=== PATIENT | female | born 1950 | race African-American/Black ===

== ENCOUNTER 2017-08-07 16:33 | Outpatient (CLI) | payer MEDICARE, MEDICAID ==
--- NOTE | 2017-08-08 11:18 | Diagnostic Imaging Report ---
Indication: Dyspnea Comparison: None 2 views of the chest obtained. Findings: The lungs are hyperexpanded. Aorta is ectatic. Heart size is normal. No infiltrates are seen. Bones are osteopenic. Impression: No acute disease COPD
== END 2017-08-07 18:33 | disposition home or self-care (01) ==
LOC: RAD 16:33
DX: R05 Cough (principal); J44.9 Chronic obstructive pulmonary disease, unspecified; M85.80 Other specified disorders of bone density and structure, unspecified site
CPT/HCPCS: 71020

== ENCOUNTER 2018-07-01 13:30 | Outpatient (CLI) | payer MEDICARE, MEDICAID ==
[~2018-07-01] VITALS: Ht 157.5 cm; Wt 57.8 kg
[2018-07-01 14:39] VITALS: BP 125/74
[2018-07-01] MEDS ORDERED: CALCIUM500 M2 PO (15:09)
[2018-07-01] MEDS ORDERED: PLAVIX75 MG ORAL (15:09)
[2018-07-01] MEDS ORDERED: [UNRECOGNIZED DRUG - REMARK] (15:09)
[2018-07-01] MEDS ORDERED: [UNRECOGNIZED DRUG - REMARK] (15:09)
--- NOTE | 2018-07-02 14:14 | GI Initial Consult Note ---
History of Present Illness General Date patient seen: Jul 02, 2018 Time patient seen: 14:08 Referring physician: ARLYN Reason for Consultation: Colonoscopy Present Illness HPI 68 year old female patient referred by Dr. Alejo presents today with routine colonoscopy screening. Last colonoscopy was 5+ years ago, which the patient states was normal. In addition, the patient complains of occasional constipation in which she states she takes pain medication for her leg. She has tried colace, but state it has no effects on her bowel movements. Denies any unintentional weight loss or changes in dietary habits. No signs of abuse or neglect. Patient is not fall risk. Patient believes she is on Plavix or some other blood thinner. Home Meds Reported Medications Clopidogrel Bisulfate* (PLAVIX*) 75 Mg Tablet, 75 MG ORAL DAILY, TAB 07/01/18 Calcium Carbonate (CALCIUM) 500 Mg Tablet, PO, TAB 07/01/18 [osteporosis pill ] No Conflict Check 07/01/18 [pain pill] No Conflict Check 07/01/18 Med list reviewed/reconciled: Yes Allergies: Coded Allergies: No Known Allergies (Verified , 10/06/11) Patient History History Provided By: Patient, Medical Record PMH Narrative CVA COPD Osteoporosis Past Surgical History: Leg leg Fx Family History Narrative Sister had Stomach CA Social History: Reports: other - soda; Denies: smoking, alcohol use, drug use Review of Systems All Other Systems: negative except mentioned in HPI Physical Exam Vital Signs Date Time Temp Pulse Resp B/P (MAP) Pulse Ox O2 Delivery O2 Flow Rate FiO2 07/01/18 14:39 98.1 88 16 125/74 96 Sp02 EP Interpretation: reviewed, normal General Appearance: well appearing, no apparent distress, alert Head: normocephalic EENT: PERRL/EOMI, normal ENT inspection Neck: supple Respiratory: normal breath sounds, no respiratory distress Cardiovascular: normal rate Gastrointestinal: normal inspection, non tender, soft, normal bowel sounds, non -distended Rectal: deferred Genitourinary: no CVA tenderness Musculoskeletal: normal inspection, back normal, other - decreases ROM RLE. Neurologic: normal inspection, alert, oriented x3, responsive Psychiatric: normal inspection, judgement/insight normal, memory normal Skin: normal inspection, normal color, no rash, warm/dry, palpation normal, well hydrated Lymphatic: normal inspection, no adenopathy GI: Plan Problems: (1) CVA (cerebral vascular accident) (2) COPD (chronic obstructive pulmonary disease) (3) Colonoscopy planned (4) Constipation (5) Osteoporosis Plan Colonoscopy scheduled 07/14/18. - CLD & (Nulytely/Suprep/Movi-Prep) prep instructions given and acknowledged by patient. - NPO @ [place] day prior procedure explained. - patient on plavix, was instructed to stop 3 days prior procedure. Seen with Dr. Blanton. Thank you for this patient referral. The patient was seen and examined at bedside and all new and available data was reviewed in the patients chart. I agree with the above findings, impression and plan. (Patient seen earlier today. Signature stamp does not reflect patient encounter time.). - MD Dot SerranoQuail Run Behavioral HealthMekhi [facility] Jul 02, 2018 14:14
== END 2018-07-01 14:00 | disposition home or self-care (01) ==
LOC: PAN 13:30
DX: Z12.11 Encounter for screening for malignant neoplasm of colon (principal); J44.9 Chronic obstructive pulmonary disease, unspecified; K59.00 Constipation, unspecified; M81.0 Age-related osteoporosis without current pathological fracture; Z86.73 Personal history of transient ischemic attack (TIA), and cerebral infarction without residual deficits; M54.16 Radiculopathy, lumbar region
CPT/HCPCS: 99202

== ENCOUNTER → 2018-08-11 | Day surgery (SDC) | payer MEDICARE, MEDICAID ==
[~2018-08-11] VITALS: Ht 157.5 cm; Wt 55.3 kg
[~2018-08-11] MED LIST: Atropine Inj 1mg/10ml Syr IV PRN; CALCIUM500 M2 PO; DiphenhydrAMINE 50mg/ml Inj IVP PRN; Midazolam 2mg/2ml Inj IVP PRN; PLAVIX75 MG ORAL; [UNRECOGNIZED DRUG - REMARK]; [UNRECOGNIZED DRUG - REMARK]; fentaNYL 100 mcg/2 mL IV PRN
--- NOTE | 2018-08-11 06:43 | Anethesia Preoperative Eval ---
Anesthesia Pre-op PMH/ROS General Date of Evaluation: Aug 11, 2018 Time of Evaluation: 06:41 Anesthesiologist: fabiana ASA Score: ASA 3 Mallampati Score Class I : Soft palate, uvula, fauces, pillars visible Class II: Soft palate, uvula, fauces visible Class III: Soft palate, base of uvula visible Class IV: Only hard plate visible Mallampati Classification: Class II Surgeon: collin Diagnosis: colon screening Surgical Procedure: colonoscopy Anesthesia History: none Social History: smoking - former Family History: no anesthesia problems Allergies: Coded Allergies: No Known Allergies (Verified , 10/06/11) Medications: see eMAR Patient NPO?: Yes Past Medical History Cardiovascular: Reports: MS Pulmonary: Reports: COPD Neurologic/Psychiatric: Reports: CVA, other - migaine headache Endocrine: Reports: other - thyroid disorder Hematology/Immune: Reports: anemia Musculoskeletal/Integumentary: Reports: other - osteoporosis Anesthesia Pre-op A/P Risk Assessment & Plan Assessment: incomplete colon prep. asa3 Plan: patient to be rescheduled. Beverly Patel MD Aug 11, 2018 06:43
--- NOTE | 2018-08-11 09:34 | Pre-Procedure Note/Attestation ---
Pre-Procedure Note/Attestation Complete Prior to Procedure Planned Procedure: not applicable Procedure Narrative: colonoscopy Indications for Procedure Pre-Operative Diagnosis: screening Attestation I attest that I discussed the nature of the procedure; its benefits; risks and complications; and alternatives (and the risks and benefits of such alternatives ), prior to the procedure, with the patient (or the patient's legal customer care representative). I attest that, if there was a reasonable possibility of needing a blood transfusion, the patient (or the patient's legal customer care representative) was given the [facility] standardized written summary, pursuant to the Eduardo [place] Blood Safety Act ([place] Health and Safety Code # 1645, as amended). I attest that I re-evaluated the patient just prior to the surgery and that there has been no change in the patient's H&P, except as documented below: Shabbir Blanton MD Aug 11, 2018 09:34
--- NOTE | 2018-08-11 09:35 | Short Stay Surgery H&P ---
History of Present Illness History of Present Illness Chief Complaint see recent office note HPI Samantha Alfred is a 68 year old female who was admitted on for Screening Patient History Allergies: Coded Allergies: No Known Allergies (Verified , 10/06/11) Medication History Scheduled Clopidogrel Bisulfate* (Plavix*), 75 MG ORAL DAILY, (Reported) Miscellaneous Medications Calcium Carbonate (Calcium), Unknown Dose PO, (Reported) [osteporosis pill ], (Reported) [pain pill], (Reported) Plan Attestation Are the patient's medical conditions optimized for surgery? Shabbir Blanton MD Aug 11, 2018 09:35
== END | disposition home or self-care (01) ==
LOC: GAS 07:05
DX: Z12.11 Encounter for screening for malignant neoplasm of colon (principal); Z53.09 Procedure and treatment not carried out because of other contraindication

== ENCOUNTER 2018-09-10 08:04 | Day surgery (SDC) | payer MEDICARE, MEDICAID ==
[2018-09-10] VITALS (11 sets, daily range): BP systolic 118–134; BP diastolic 65–79
[~2018-09-10] VITALS: Ht 154.9 cm; Wt 54.4 kg
[~2018-09-10 08:04] MED LIST changes: -Atropine Inj 1mg/10ml Syr IV PRN; -DiphenhydrAMINE 50mg/ml Inj IVP PRN; -Midazolam 2mg/2ml Inj IVP PRN; -fentaNYL 100 mcg/2 mL IV PRN
[2018-09-10] MEDS ORDERED: CYMBALTA60 MG ORAL (09:13)
[2018-09-10] MEDS ORDERED: CRESTOR20 MG ORAL (09:13)
[2018-09-10] MEDS ORDERED: SPIRIVA18 MCG INH (09:17)
[2018-09-10] MEDS ORDERED: ADVAIR 250-501 EACH INH (09:17)
[2018-09-10] MEDS ORDERED: NORCO 10-325 T1 EACH ORAL (09:17)
[2018-09-10] MEDS ORDERED: PROAIR HFA8.5 GM INH (09:17)
[2018-09-10] MEDS ORDERED: LEVETIRACETAM500 MG ORAL (09:17)
[2018-09-10 09:21] LABS: BASOPHILS % (AUTO) 0.8 % (0.0-2.0); EOSINOPHILS % (AUTO) 0.5 % (0.0-3.0); HEMATOCRIT 39.2 % (37.0-47.0); HEMOGLOBIN 12.5 G/DL (12.0-16.0); LYMPHOCYTES % (AUTO) 22.9 % (20.0-45.0); MEAN CORPUSCULAR VOLUME 100 FL (80-99); MONOCYTES % (AUTO) 5.8 % (1.0-10.0); NEUTROPHILS % (AUTO) 69.9 % (45.0-75.0); PLATELET COUNT 351 K/UL (150-450); RED CELL DISTRIBUTION WIDTH 12.5 % (11.6-14.8)
--- NOTE | 2018-09-10 09:34 | Short Stay Surgery H&P ---
History of Present Illness History of Present Illness Chief Complaint see recent office consult note HPI Samantha Alfred is a 68 year old female who was admitted on for Screening Colonoscopy Patient History Allergies: Coded Allergies: No Known Allergies (Verified , 10/06/11) Medication History Scheduled Albuterol Sulfate* (Proair Hfa*), 1 PUFF INH Q8, (Reported) Clopidogrel Bisulfate* (Plavix*), 75 MG ORAL DAILY, (Reported) Duloxetine Hcl* (Cymbalta*), 60 MG ORAL DAILY, (Reported) Fluticasone/Salmeterol (Advair 250-50 Diskus), 1 PUFF INH DA, (Reported) Levetiracetam* (Levetiracetam*), 250 MG ORAL DA, (Reported) Rosuvastatin Calcium* (Crestor*), 20 MG ORAL DAILY, (Reported) Tiotropium [place]* (Spiriva*), 1 PUFF INH DAILY, (Reported) Scheduled PRN Hydrocodone Bit/Acetaminophen 10-325* ([place] 10-325*), 1 TAB ORAL Q4H PRN for For Pain, (Reported) Miscellaneous Medications Calcium Carbonate (Calcium), Unknown Dose PO, (Reported) [osteporosis pill ], (Reported) Physical Exam Vital Signs Last Vital Signs Date Time Temp Pulse Resp B/P (MAP) Pulse Ox O2 Delivery O2 Flow Rate FiO2 09/10/18 08:48 Room Air 09/10/18 08:44 97.6 87 20 118/73 96 Labs Laboratory Tests Test 09/10/18 09:05 White Blood Count 5.0 K/UL (4.8-10.8) Red Blood Count 3.90 M/UL (4.20-5.40) L Hemoglobin 12.5 G/DL (12.0-16.0) Hematocrit 39.2 % (37.0-47.0) Mean Corpuscular Volume 100 FL (80-99) H Mean Corpuscular Hemoglobin 31.9 PG (27.0-31.0) H Mean Corpuscular Hemoglobin Concent 31.8 G/DL (32.0-36.0) L Red Cell Distribution Width 12.5 % (11.6-14.8) Platelet Count 351 K/UL (150-450) Mean Platelet Volume 5.3 FL (6.5-10.1) L Neutrophils (%) (Auto) 69.9 % (45.0-75.0) Lymphocytes (%) (Auto) 22.9 % (20.0-45.0) Monocytes (%) (Auto) 5.8 % (1.0-10.0) Eosinophils (%) (Auto) 0.5 % (0.0-3.0) Basophils (%) (Auto) 0.8 % (0.0-2.0) Prothrombin Time 10.2 SEC (9.30-11.50) Prothromb Time International Ratio 1.0 (0.9-1.1) Activated Partial Thromboplast Time 29 SEC (23-33) Sodium Level Pending Potassium Level Pending Chloride Level Pending Carbon Dioxide Level Pending Blood Urea Nitrogen Pending Creatinine Pending Estimat Glomerular Filtration Rate Pending Glucose Level Pending Calcium Level Pending Total Bilirubin Pending Aspartate Amino Transf (AST/SGOT) Pending Alanine Aminotransferase (ALT/SGPT) Pending Alkaline Phosphatase Pending Total Protein Pending Albumin Pending Globulin Pending Plan Attestation Are the patient's medical conditions optimized for surgery? Shabbir Blanton MD Sep 10, 2018 09:34
--- NOTE | 2018-09-10 09:34 | Pre-Procedure Note/Attestation ---
Pre-Procedure Note/Attestation Complete Prior to Procedure Planned Procedure: not applicable Procedure Narrative: colonoscopy Indications for Procedure Pre-Operative Diagnosis: screening Attestation I attest that I discussed the nature of the procedure; its benefits; risks and complications; and alternatives (and the risks and benefits of such alternatives ), prior to the procedure, with the patient (or the patient's legal denial management representative). I attest that, if there was a reasonable possibility of needing a blood transfusion, the patient (or the patient's legal denial management representative) was given the [facility] standardized written summary, pursuant to the Eduardo [place] Blood Safety Act ([place] Health and Safety Code # 1645, as amended). I attest that I re-evaluated the patient just prior to the surgery and that there has been no change in the patient's H&P, except as documented below: Shabbir Blanton MD Sep 10, 2018 09:34
[2018-09-10 09:36] LABS: ANION GAP 7 mmol/L (5-15); BLOOD UREA NITROGEN 13 mg/dL (7-18); CALCIUM 9.7 MG/DL (8.5-10.1); CARBON DIOXIDE 29 MMOL/L (21-32); CHLORIDE 103 MMOL/L (98-107); CREATININE 1.1 MG/DL (0.55-1.30); POTASSIUM 4.2 MMOL/L (3.5-5.1); SODIUM 138 MMOL/L (136-145)
[2018-09-10 09:43] LABS: ALANINE AMINOTRANSFERASE 23 U/L (12-78); ALBUMIN 3.3 G/DL (3.4-5.0); ALBUMIN/GLOBULIN RATIO 0.7 (1.0-2.7); ALKALINE PHOSPHATASE 107 U/L (46-116); ASPARTATE AMINO TRANSFERASE 22 U/L (15-37); BILIRUBIN,TOTAL 0.6 MG/DL (0.2-1.0)
[2018-09-10] MEDS ORDERED: Lidocaine 1% MPF 10mg/ml 5ml ONE (10:00)
[2018-09-10] MEDS ORDERED: LR 1000ml ONE (10:00)
[2018-09-10] MEDS ORDERED: Propofol 200mg/20ml IV ONE (10:00)
--- NOTE | 2018-09-10 10:00 | Anethesia Preoperative Eval ---
Anesthesia Pre-op PMH/ROS General Date of Evaluation: Sep 10, 2018 Time of Evaluation: 09:40 Anesthesiologist: Joann Samuels CRNA ASA Score: ASA 3 Mallampati Score Class I : Soft palate, uvula, fauces, pillars visible Class II: Soft palate, uvula, fauces visible Class III: Soft palate, base of uvula visible Class IV: Only hard plate visible Mallampati Classification: Class II Surgeon: Harvinder Diagnosis: Colon screening Surgical Procedure: Colonosocpy Anesthesia History: none Social History: smoking Family History: no anesthesia problems Allergies: Coded Allergies: No Known Allergies (Verified , 10/06/11) Medications: see eMAR Patient NPO?: Yes NPO Date: Sep 10, 2018 NPO Time: 00:00 Past Medical History Cardiovascular: Reports: HTN, CAD, VT; Denies: valve dz, arrhythmia, other Pulmonary: Reports: COPD; Denies: asthma, DEEPTI, other Gastrointestinal/Genitourinary: Reports: GERD; Denies: CRI, ESRD, other Neurologic/Psychiatric: Reports: CVA, other; Denies: dementia, depression/anxiety, TIA Endocrine: Denies: DM, hypothyroidism, steroids, other HEENT: Denies: cataract (L), cataract (R), glaucoma, CREEK (L), CREEK (R), other Hematology/Immune: Denies: anemia, DVT, bleeding disorder, other Musculoskeletal/Integumentary: Denies: OA, RA, DJD, DDD, edema, other PMH Narrative: as above PSxH Narrative: LEFT leg ORIF, neck surgery Anesthesia Pre-op Phys. Exam Physician Exam Last Vital Signs Date Time Temp Pulse Resp B/P (MAP) Pulse Ox O2 Delivery O2 Flow Rate FiO2 09/10/18 08:48 Room Air 09/10/18 08:44 97.6 87 20 118/73 96 Constitutional: NAD Neurologic: CN 2-12 intact Cardiovascular: RRR Respiratory: CTA Gastrointestinal: S/NT/ND Airway Exam Mallampati Score: Class II MO: full Neck: decreased ROM TMD: 3 FB ROM: full Teeth: intact Dentures: no upper, no lower Anesthesia Pre-op A/P Labs Hematology Test 09/10/18 09:05 White Blood Count 5.0 K/UL (4.8-10.8) Red Blood Count 3.90 M/UL (4.20-5.40) L Hemoglobin 12.5 G/DL (12.0-16.0) Hematocrit 39.2 % (37.0-47.0) Mean Corpuscular Volume 100 FL (80-99) H Mean Corpuscular Hemoglobin 31.9 PG (27.0-31.0) H Mean Corpuscular Hemoglobin Concent 31.8 G/DL (32.0-36.0) L Red Cell Distribution Width 12.5 % (11.6-14.8) Platelet Count 351 K/UL (150-450) Mean Platelet Volume 5.3 FL (6.5-10.1) L Neutrophils (%) (Auto) 69.9 % (45.0-75.0) Lymphocytes (%) (Auto) 22.9 % (20.0-45.0) Monocytes (%) (Auto) 5.8 % (1.0-10.0) Eosinophils (%) (Auto) 0.5 % (0.0-3.0) Basophils (%) (Auto) 0.8 % (0.0-2.0) Coagulation Test 09/10/18 09:05 Prothrombin Time 10.2 SEC (9.30-11.50) Prothromb Time International Ratio 1.0 (0.9-1.1) Activated Partial Thromboplast Time 29 SEC (23-33) Chemistry Test 09/10/18 09:05 Sodium Level 138 MMOL/L (136-145) Potassium Level 4.2 MMOL/L (3.5-5.1) Chloride Level 103 MMOL/L (98-107) Carbon Dioxide Level 29 MMOL/L (21-32) Anion Gap 7 mmol/L (5-15) Blood Urea Nitrogen 13 mg/dL (7-18) Creatinine 1.1 MG/DL (0.55-1.30) Estimat Glomerular Filtration Rate 59.9 mL/min (>60) Glucose Level 102 MG/DL (74-106) Calcium Level 9.7 MG/DL (8.5-10.1) Total Bilirubin 0.6 MG/DL (0.2-1.0) Aspartate Amino Transf (AST/SGOT) 22 U/L (15-37) Alanine Aminotransferase (ALT/SGPT) 23 U/L (12-78) Alkaline Phosphatase 107 U/L (46-116) Total Protein 7.9 G/DL (6.4-8.2) Albumin 3.3 G/DL (3.4-5.0) L Globulin 4.6 g/dL Albumin/Globulin Ratio 0.7 (1.0-2.7) L Studies Pre-op Studies: EKG - SR, infarct Risk Assessment & Plan Assessment: ASA 2 ok to proceed Plan: MAC Status Change Before Surgery: No Pre-Antibiotics Given Within 1 Hr of Incision: Joann Gill CRNA Sep 10, 2018 10:00
--- NOTE | 2018-09-10 10:04 | Endoscopy Procedure Note ---
Endoscopy Procedure Note General Indication for Procedure: screening Procedures Performed: colonoscopy Operative Findings/Diagnosis: hemorrhoids Specimen: none Pt Tolerated Procedure Well: Yes Estimated Blood Loss: none Anesthesia Anesthesiologist: abundio Anesthesia: MAC Inserted Devices Implant(s) used?: No Quality Quality of Bowel Preparation: Good Did scope reach the cecum?: Yes Was there any complications?: No GI Core Measures 50 yrs or older w/o bx or poly: No 10yrs. F/U not recommended: Yes If not recommended, why?: Above average risk 10 yrs. F/U needed: Yes 18 years or older w/prev. colo: Yes <3yrs. since last colonoscopy: No Shabbir Blanton MD Sep 10, 2018 10:04
--- NOTE | 2018-09-10 10:16 | Immediate Post-Op Evaluation ---
Immediate Post-Op Evalulation Immediate Post-Op Evalulation Procedure: Screening colonoscopy Date of Evaluation: Sep 10, 2018 Time of Evaluation: 10:10 IV Fluids: 0.9 NS 200 ml Blood Pressure Systolic: 128 Blood Pressure Diastolic: 74 Pulse Rate: 80 Respiratory Rate: 20 O2 Sat by Pulse Oximetry: 100 Temperature (Fahrenheit): 97.4 Pain Score (1-10): 0 Nausea: No Vomiting: No Complications none Patient Status: awake, patent Hydration Status: adequate Given Within 1 Hr of Incision: Joann Gill CRNA Sep 10, 2018 10:16
--- NOTE | 2018-09-10 12:45 | 48 Hour Post Anesthesia Eval ---
Post Anesthesia Evaluation Procedure: Screening colonoscopy Date of Evaluation: Sep 10, 2018 Time of Evaluation: 11:00 Blood Pressure Systolic: 134 0: 77 Pulse Rate: 78 Respiratory Rate: 20 Temperature (Fahrenheit): 97.8 O2 Sat by Pulse Oximetry: 98 Airway: patent Nausea: No Vomiting: No Pain Intensity: 0 Hydration Status: adequate Cardiopulmonary Status: stable Mental Status/LOC: patient returned to baseline Follow-up Care/Observations: per GI Post-Anesthesia Complications: none Follow-up care needed: ready to discharge Joann Samuels CRNA Sep 10, 2018 12:45
--- NOTE | 2018-09-10 15:30 | Procedure Note ---
DATE OF PROCEDURE: 09/10/2018 SURGEON: Shabbir Blanton M.D. PROCEDURE: Colonoscopy. ANESTHESIA: Per Stephanie GRACIA. INSTRUMENT: Olympus adult flexible colonoscope INDICATION: Screening colonoscopy. REASON FOR PROCEDURE: The procedure, risks, benefits, and possible consequences, including hemorrhage, aspiration, perforation and infection, and alternative treatments, were explained to the patient/legal guardian by Dr. Shabbir Blanton and the patient/legal guardian understood and accepted these risks. PROCEDURE IN DETAIL: After informed consent was obtained and the patient was adequately sedated, first rectal exam was performed, which was positive for internal hemorrhoids. Then, the scope was advanced from rectum into the cecum then subsequently to terminal ileum. Quality of prep was very good. The patient had normal colonoscopy examination. No obvious polyp or mass, diverticulosis or any other pathology was seen in this colonoscopy examination. Retroflexion of rectum showed evidence of internal hemorrhoids, medium in size, may be three or four of them. The patient tolerated the procedure very well without any complication. SUMMARY OF FINDINGS: Normal colonoscopy examination except for internal hemorrhoids. RECOMMENDATIONS: The patient to follow in the office next week if she has any symptoms, otherwise recommend repeat colonoscopy in five years. Shabbir Blanton M.D. DR: MASON JOB#: [id number] CC:
== END 2018-09-10 11:50 | disposition home or self-care (01) ==
LOC: GAS 08:04
DX: Z12.11 Encounter for screening for malignant neoplasm of colon (principal); K64.8 Other hemorrhoids; I25.10 Atherosclerotic heart disease of native coronary artery without angina pectoris; I10 Essential (primary) hypertension; I25.2 Old myocardial infarction; J44.9 Chronic obstructive pulmonary disease, unspecified; K21.9 Gastro-esophageal reflux disease without esophagitis; F17.200 Nicotine dependence, unspecified, uncomplicated; Z86.73 Personal history of transient ischemic attack (TIA), and cerebral infarction without residual deficits
CPT/HCPCS: 36415; 80053; 85025; 85610; 85730; 93005; G0121; J2704; 94003; 94150

== ENCOUNTER 2019-02-28 12:12 | Emergency (ER) | payer MEDICARE, MEDICAID ==
[~2019-02-28] VITALS: Ht 157.5 cm; Wt 54.4 kg
[~2019-02-28 12:12] MED LIST changes: +ADVAIR 250-501 EACH INH; +CRESTOR20 MG ORAL; +CYMBALTA60 MG ORAL; +LEVETIRACETAM500 MG ORAL; +NORCO 10-325 T1 EACH ORAL; +PROAIR HFA8.5 GM INH; +SPIRIVA18 MCG INH
--- NOTE | 2019-02-28 12:36 | Emergency Room Report ---
History of Present Illness General Chief Complaint: Dizziness Source: Patient Present Illness HPI Patient was seen at her primary physician's office today Reports that she is routinely checked and this was a routine check I did speak to the patient's primary he reports that the patient appeared somewhat unstable and mildly tremulous they did not feel patient was stable for driving home He also reports that the patient had a urine test which showed PCP At this time patient denies any drug use Reports that she has multiple medical problems and has had previous CVA Denies any headache denies any chest pain denies any focal weakness Allergies: Coded Allergies: No Known Allergies (Verified , 10/06/11) Patient History Past Medical History: see triage record Pertinent Family History: none Reviewed Nursing Documentation: PMH: Agreed; PSxH: Agreed Nursing Documentation-PMH Hx Cardiac Problems: Yes Hx Hypertension: Yes Hx COPD: Yes - On inhalers Hx Cancer: No Hx Gastrointestinal Problems: Yes - Constipation Hx Neurological Problems: Yes - HX MIGRAINES- 2 Weeks prior to admit Hx 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 Hx Memory Loss: Yes - After stroke - short term memory loss Hx Vertigo: Yes Hx Syncope: Yes - Orthostatic hypotension Hx Numbness: Yes - Bilateral Feet\Hands Hx Weakness: Yes - L Side Hx Neurologic Surgery: Yes Review of Systems All Other Systems: negative except mentioned in HPI Physical Exam Vital Signs Date Time Temp Pulse Resp B/P (MAP) Pulse Ox O2 Delivery O2 Flow Rate FiO2 02/28/19 12:15 97.9 92 19 95/58 (70) 94 Room Air Sp02 EP Interpretation: reviewed, normal General Appearance: well appearing, no apparent distress Head: normocephalic, atraumatic Eyes: bilateral eye PERRL, bilateral eye EOMI ENT: normal pharynx Neck: supple Respiratory: lungs clear Cardiovascular #1: regular rate, rhythm Gastrointestinal: non tender, soft Musculoskeletal: normal inspection Neurologic: alert, oriented x3, responsive - However patient does appear mildly tremulous Skin: normal color, no rash Lymphatic: no adenopathy Medical Decision Making Diagnostic Impression: Primary Impression: Dizziness ER Course Patient is a fairly complex patient with multiple differential to consideration including but not limited to cardiac cardiopulmonary , neurological , neurosurgical and vascular emergencies Patient CT head does not show any acute disease blood work is at baseline levels Patient's drug screen today was negative for PCP on our test I did discuss this with the patient's primary physician who had contacted us Given this negative test and the patient's hemodynamic stability patient will Make follow-up for next week and return earlier with any changes Labs Test 02/28/19 13:00 02/28/19 13:44 White Blood Count 4.8 K/UL (4.8-10.8) Red Blood Count 3.55 M/UL (4.20-5.40) Hemoglobin 10.9 G/DL (12.0-16.0) Hematocrit 35.0 % (37.0-47.0) Mean Corpuscular Volume 99 FL (80-99) Mean Corpuscular Hemoglobin 30.8 PG (27.0-31.0) Mean Corpuscular Hemoglobin Concent 31.1 G/DL (32.0-36.0) Red Cell Distribution Width 14.6 % (11.6-14.8) Platelet Count 221 K/UL (150-450) Mean Platelet Volume 5.9 FL (6.5-10.1) Neutrophils (%) (Auto) 48.9 % (45.0-75.0) Lymphocytes (%) (Auto) 35.0 % (20.0-45.0) Monocytes (%) (Auto) 12.4 % (1.0-10.0) Eosinophils (%) (Auto) 2.0 % (0.0-3.0) Basophils (%) (Auto) 1.8 % (0.0-2.0) Prothrombin Time 9.4 SEC (9.30-11.50) Prothromb Time International Ratio 0.9 (0.9-1.1) Sodium Level 140 MMOL/L (136-145) Potassium Level 4.3 MMOL/L (3.5-5.1) Chloride Level 103 MMOL/L (98-107) Carbon Dioxide Level 30 MMOL/L (21-32) Anion Gap 7 mmol/L (5-15) Blood Urea Nitrogen 22 mg/dL (7-18) Creatinine 1.2 MG/DL (0.55-1.30) Estimat Glomerular Filtration Rate 54.2 mL/min (>60) Glucose Level 93 MG/DL (74-106) Calcium Level 9.4 MG/DL (8.5-10.1) Total Bilirubin 0.2 MG/DL (0.2-1.0) Aspartate Amino Transf (AST/SGOT) 22 U/L (15-37) Alanine Aminotransferase (ALT/SGPT) 21 U/L (12-78) Alkaline Phosphatase 85 U/L (46-116) Total Protein 7.5 G/DL (6.4-8.2) Albumin 3.4 G/DL (3.4-5.0) Globulin 4.1 g/dL Albumin/Globulin Ratio 0.8 (1.0-2.7) Serum Alcohol < 3 mg/dL Urine Color Pale yellow Urine Appearance Slightly cloudy Urine pH 7 (4.5-8.0) Urine Specific Jones 1.010 (1.005-1.035) Urine Protein Negative (NEGATIVE) Urine Glucose (UA) Negative (NEGATIVE) Urine Ketones Negative (NEGATIVE) Urine Blood Negative (NEGATIVE) Urine Nitrite Negative (NEGATIVE) Urine Bilirubin Negative (NEGATIVE) Urine Urobilinogen Normal MG/DL (0.0-1.0) Urine Leukocyte Esterase 1+ (NEGATIVE) Urine RBC 2-4 /HPF (0 - 2) Urine WBC 0-2 /HPF (0 - 2) Urine Squamous Epithelial Cells Moderate /LPF (NONE/OCC) Urine Bacteria None /HPF (NONE) Urine Opiates Screen Negative (NEGATIVE) Urine Barbiturates Screen Negative (NEGATIVE) Phencyclidine (PCP) Screen Negative (NEGATIVE) Urine Amphetamines Screen Negative (NEGATIVE) Urine Benzodiazepines Screen Positive (NEGATIVE) Urine Cocaine Screen Negative (NEGATIVE) Urine Marijuana (THC) Screen Negative (NEGATIVE) Rhythm Strip Diag. Results EP Interpretation: yes Rate: 80 Rhythm: NSR, no PVC's, no ectopy Chest X-Ray Diagnostic Results Chest X-Ray Diagnostic Results : Chest X-Ray Ordered: Yes # of Views/Limited/Complete: 1 View Indication: Chest Pain EP Interpretation: Yes Interpretation: no consolidation, no effusion, no pneumothorax Impression: No acute disease Electronically Signed by: Danish Castano, DO CT/MRI/US Diagnostic Results CT/MRI/US Diagnostic Results : Impression CT headImpression: No acute intracranial bleed, mass effect or edema. 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 This was probably present on the 2012 CT. Mild atrophy of the brain. Nonspecific white matter hypoattenuation probably due to chronic small vessel disease. Last Vital Signs Date Time Temp Pulse Resp B/P (MAP) Pulse Ox O2 Delivery O2 Flow Rate FiO2 02/28/19 12:15 97.9 92 19 95/58 (70) 94 Room Air Status: improved Disposition: HOME, SELF-CARE Condition: Improved Additional Instructions: Patient is provided with the discharge instructions notified to follow up with primary doctor in the next 2-3 days otherwise return to the er with any worsening symptoms. Please note that this report is being documented using DRAGON technology. This can lead to erroneous entry secondary to incorrect interpretation by the dictating instrument. Danish Castano DO Feb 28, 2019 12:36
--- NOTE | 2019-02-28 13:04 | Diagnostic Imaging Report ---
Indication: Dyspnea Comparison: 08/07/2017 A single view chest radiograph was obtained. Findings: Cardiomediastinal appearance is within normal limits for age. The lungs are clear. Pulmonary vascularity is appropriate. The diaphragmatic contour is smooth and costophrenic angles are sharp. No pleural effusions are identified. The bones are unremarkable. Impression: No acute findings
--- NOTE | 2019-02-28 13:13 | Diagnostic Imaging Report ---
Indication: Headache Technique: Contiguous 5 mm thick transaxial imaging of the head obtained in a Siem[employer] Sensation [address] scanner. Soft tissue and bone windows generated. Automatic Exposure Control was utilized. Total Dose length Product (DLP): 1362.[address] Dose Index Volume (CTDIvol): 70.38 mGy Comparison: 01/19/2012 CT head Findings: There is mild prominence of the ventricles, basal cisterns, and cerebral sulci consistent with atrophy. Mild, nonspecific, white matter hypoattenuation is noted throughout the brain consistent with chronic small vessel disease. This is asymmetric involving the left frontal and temporal lobe. The left sylvian fissure is also slightly enlarged indicating some degree of focal parenchymal loss or encephalomalacia. There is no midline shift, edema, acute hemorrhage, mass effect, or abnormal extra-axial fluid collections. Bones are unremarkable. Impression: No acute intracranial bleed, mass effect or edema. 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 This was probably present on the 2012 CT. Mild atrophy of the brain. Nonspecific white matter hypoattenuation probably due to chronic small vessel disease. The CT scanner at [facility] is accredited by the [employer] and the scans are performed using dose optimization techniques as appropriate to a performed exam including Automatic Exposure control.
--- NOTE | 2019-02-28 13:30 | NUR ---
ED Nurse Note:pt. came with c/o dizziness and weakness, she is A/Ox4 ambulatory with cane
[2019-02-28 13:42] LABS: BASOPHILS % (AUTO) 1.8 % (0.0-2.0); HEMOGLOBIN 10.9 G/DL (12.0-16.0); MEAN CORPUSCULAR VOLUME 99 FL (80-99); MONOCYTES % (AUTO) 12.4 % (1.0-10.0); NEUTROPHILS % (AUTO) 48.9 % (45.0-75.0); PLATELET COUNT 221 K/UL (150-450); RED BLOOD COUNT 3.55 M/UL (4.20-5.40); RED CELL DISTRIBUTION WIDTH 14.6 % (11.6-14.8); WHITE BLOOD COUNT 4.8 K/UL (4.8-10.8)
--- NOTE | 2019-02-28 13:45 | NUR ---
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
[2019-02-28 13:46] LABS: INR 0.9 (0.9-1.1)
[2019-02-28 13:47] LABS: ANION GAP 7 mmol/L (5-15); BLOOD UREA NITROGEN 22 mg/dL (7-18); CALCIUM 9.4 MG/DL (8.5-10.1); CARBON DIOXIDE 30 MMOL/L (21-32); CHLORIDE 103 MMOL/L (98-107); CREATININE 1.2 MG/DL (0.55-1.30); POTASSIUM 4.3 MMOL/L (3.5-5.1); SODIUM 140 MMOL/L (136-145)
[2019-02-28 13:51] LABS: ALANINE AMINOTRANSFERASE 21 U/L (12-78); ALBUMIN 3.4 G/DL (3.4-5.0); ALBUMIN/GLOBULIN RATIO 0.8 (1.0-2.7); ALKALINE PHOSPHATASE 85 U/L (46-116); ASPARTATE AMINO TRANSFERASE 22 U/L (15-37); BILIRUBIN,TOTAL 0.2 MG/DL (0.2-1.0)
[2019-02-28 14:07] VITALS: BP 142/83
[2019-02-28 14:10] LABS: APPEARANCE,URINE SLIGHTLY CLOUDY; BILIRUBIN, URINE NEGATIVE (NEGATIVE); COLOR,URINE PALE YELLOW; GLUCOSE, URINE (UA) NEGATIVE (NEGATIVE); KETONES,URINE NEGATIVE (NEGATIVE); LEUKOCYTE ESTERASE ,URINE 1+ (NEGATIVE); NITRITE,URINE NEGATIVE (NEGATIVE); PH,URINE 7 (4.5-8.0); PROTEIN,URINE NEGATIVE (NEGATIVE); UROBILINOGEN,URINE NORMAL MG/DL (0.0-1.0)
[2019-02-28 14:40] VITALS: BP 142/83
--- NOTE | 2019-02-28 14:41 | NUR ---
ER DISCHARGE NOTE: Patient is cleared to be discharged per ERMD, pt is aox4, on room air, with stable vital signs. pt was given dc and prescription instructions, pt was able to verbalize understanding, pt id band and iv site removed without complications. pt is able to ambulate with steady gait. pt took all belongings, went home with her daugher
== END 2019-02-28 15:30 | disposition home or self-care (01) ==
LOC: EMR 13:30
DX: R42 Dizziness and giddiness (principal); I10 Essential (primary) hypertension; J44.9 Chronic obstructive pulmonary disease, unspecified; G81.94 Hemiplegia, unspecified affecting left nondominant side; G31.9 Degenerative disease of nervous system, unspecified
CPT/HCPCS: 36415; 70450; 71045; 80053; 80307; 81003; 85025; 85610; 93005; 99284; G0480; 80329